=== PATIENT | female | born 1990 | race Caucasian/White ===

== ENCOUNTER 2023-11-16 10:09 | Inpatient (IN) | payer OTHER ==
[~2023-11-16] VITALS: Ht 170.2 cm; Wt 67.0 kg
[2023-11-16] VITALS (10 sets, daily range): BP systolic 102–123; BP diastolic 62–74; O2SAT 98–100
[2023-11-16] MEDS ORDERED: PRENTAB9 PO (10:32)
[2023-11-16] MEDS ORDERED: TUMS500C PO (10:32)
[2023-11-16] MEDS ORDERED: ONDA4TAB6 PO (10:32)
[2023-11-16] MEDS ORDERED: HOME MED LIST COMPLETE! XX SCH (10:35)
[2023-11-16] MEDS: LR 1,000 ML IV SCH (11:41)
[2023-11-16 11:45] LABS: HEMATOCRIT 33.1 % (36.0-47.0); HEMOGLOBIN 10.9 g/dl (12.0-15.5); MEAN CORPUSCULAR HEMOGLOBIN 29.9 pg (27.0-33.0); MEAN CORPUSCULAR HGB CONC 32.9 g/dl (32.0-36.5); MEAN CORPUSCULAR VOLUME 90.7 fl (80.0-96.0); PLATELET COUNT, AUTOMATED 193 10^3/uL (150-450); RED BLOOD COUNT 3.65 10^6/uL (4.00-5.40); WHITE BLOOD COUNT 14.4 10^3/uL (4.0-10.0)
[2023-11-16 12:48] LABS: HEPATITIS C VIRUS ABY INDEX < 0.02 INDEX (<0.8)
[2023-11-16] MEDS: LIDOCAINE 1% MDV 20ML VIAL INFIL PRN (13:27)
[2023-11-16] MEDS: OXYTOCIN DRIP 30 UNITS in IV 1 EA IV PRN (13:28)
[2023-11-16] MEDS ORDERED: ACETAMINOPHEN TAB 650MG DOSE (2X325MG) PO PRN (14:10)
[2023-11-16] MEDS ORDERED: METHYLERGONOVINE MALEATE 0.2 MG TAB PO PRN (14:10)
[2023-11-16] MEDS: IBUPROFEN 600MG TAB PO PRN (15:17)
[2023-11-16] MEDS: ACETAMINOPHEN 500 MG TAB PO PRN (21:49)
[2023-11-17 06:00] VITALS: BP 107/56; O2SAT 98
[2023-11-17] MEDS: RHO(D) IMMUNE GLOBULIN/MALTOSE 500MCG(2500IU)/2.2ML VIAL (WINRHO) IM SCH (07:33)
[2023-11-17] MEDS: PRENATAL VITAMINS CHEWABLE TABLET PO SCH (09:44)
[2023-11-17] MEDS: MEASLES,MUMPS,RUBELLA VACCINE INJ (MMR-II) SC.IMMUN ONE (10:23)
[2023-11-17 18:00] VITALS: BP 112/66; O2SAT 98
[2023-11-18] MEDS: DOCUSATE SODIUM 100MG CAPSULE PO PRN (05:13)
[2023-11-18 06:00] VITALS: BP 107/65; O2SAT 98
[2023-11-18] MEDS: DIBUCAINE 1% OINTMENT 30GM TOP PRN (08:04)
[2023-11-18] MEDS: IBUPROFEN 800 MG TAB PO PRN (08:05)
== END 2023-11-18 15:00 | disposition home or self-care (01) | DRG 807 ==
LOC: M LDO 10:09 → M LDI 10:51 → M OBS 15:32
PROVIDERS: ADMIT Specialist; ATTEND Specialist
PROC: 10E0XZZ Delivery of Products of Conception, External Approach (ICD-10-PCS; principal; 2023-11-16)
PROC: 0KQM0ZZ Repair Perineum Muscle, Open Approach (ICD-10-PCS; 2023-11-16)
DX: O70.1 Second degree perineal laceration during delivery (principal); Z37.0 Single live birth; Z3A.40 40 weeks gestation of pregnancy

== ENCOUNTER → 2023-12-21 | Outpatient (CLI) | payer OTHER ==
[~2023-12-21] MED LIST: ONDA-282 PO; PRENTAB9 PO; TUMS500C PO
== END ==
LOC: M WHC 10:29
PROVIDERS: ATTEND Physician Assistant
DX: N64.4 Mastodynia (principal); N61.1 Abscess of the breast and nipple